=== PATIENT | male | born 1985 | race Caucasian/White ===

== ENCOUNTER → 2016-10-03 | Outpatient (CLI) | payer MEDICARE, MEDICAID ==
[~2016-10-03] MED LIST: ALEVE; AMOXICILLIN 8751 TAB PO; ATIVAN0.5 MG PO; B COMPLEX & B121 TAB PO; B6-FOLIC ACID1 CAP PO; BACTRIM 400 MG-1 TAB PO; BACTRIM DS 8001 TAB PO; BENADRYL ALLERG25 M2 PO; BENADRYL25 M1 PO; BENADRYL25 M2 PO; BENZTROPINE1 MG PO; BLEPH OP; BLEPH-10 5 ML5 ML OP; CARAFATE 1GM1 G PO; CEPHALEXIN500 M1 PO; CHLORHEXIDINE480 M1 PO; CIPRO 500MG TA500 MG PO; CLARITIN 1010 MG/TAB PO; CLINDAMYCIN300 MG PO; COGENTIN 1MG1 MG/TAB PO; COLACE 100100 MG/CAP PO; COMPAZINE 110 MG/TAB PO; COMPAZINE10 MG PO; DAZIDOX10 MG PO; DEXAMETHASONE4 MG PO; DIFLUCAN 100MG100 MG PO; DILAUDID 2MG TAB2 MG PO; DILAUDID 4MG TAB4 MG PO; DIPHEDRYL25 M1 PO; FENTANYL 100MCG TD; FLEXERIL 1010 MG/TAB PO; FLEXERIL10 MG PO; FLONASE NASAL S16 GM NS; IMITREX ST4 MG/0.5 M SC; K + POTASSIUM20 MEQ PO; KETOROLAC10 MG PO; KLONOPIN0.5 MG PO; KLONOPIN1 MG PO; LEVAQUIN 750MG750 MG PO; LORTAB 10/500 51 TAB; LORTAB 10/500 51 TAB PO; LORTAB 5/500 501 TAB PO; LOVENOX 8080 MG/0.8 SQ; LOVENOX80 MG/0.8 SC; MAGIC MOUTH; MARINOL5 MG PO; MECLIZINE25 MG PO; METHADONE5 MG PO; MILK OF MA1200 MG/5 PO; MS CONTIN 115 MG/TAB PO; MS CONTIN 330 MG/TAB PO; MS CONTIN 660 MG/TAB PO; NAPROSYN500 MG PO; NEULASTA 66 MG/0.6 M SC; NEXIUM40 MG PO; NO HOME MEDICATIONS; NORCO 325 MG-101 TAB PO; NORCO 325 MG-51 TAB PO; NYSTATIN OR100 MU/ML PO; OXYCODONE10 MG PO; OXYCODONE5 MG PO; OXYCONTIN 10MG10 MG PO; OXYCONTIN10 MG PO; OXYCONTIN20 MG PO; OYSCO 500500 M1 PO; PEPCID 20MG TAB20 MG PO; PERCOCET 325 MG1 TA2 PO; PERIDEX (CHLOR480 ML MM; PHENERGAN 25 TA25 MG PO; PHENERGAN12.5 MG/SU RC; PHENERGAN25 MG RC; PHENERGAN50 M1 PO; POLYETHYLENE GL1 PO6 PO; POTASSIUM CH2 MEQ/ML PO; POTASSIUM20 MEQ PO; PREDNISONE10 MG PO; PREDNISONE20 MG PO; PRIL40 PO; PRILOSEC 20MG20 MG PO; REGLAN 10MG10 MG/TAB PO; REGLAN 5MG T5 MG/TAB PO; ROXICODONE5 MG PO; SINGULAIR 110 MG/TAB PO; ULTRAM 50MG TAB50 MG PO; ULTRAM50 MG PO; VALIUM2 MG PO; VITAMIN D1000 IU PO; XANAX0.25 MG PO; XANAX0.5 MG PO; ZOFRAN ODT4 MG PO; ZOFRAN4 M1 PO; ZOFRAN8 MG PO; [UNRECOGNIZED DRUG - OTHER] PO; [UNRECOGNIZED DRUG - REMARK]
== END ==
LOC: COL.RAD 12:30
DX: M54.5 Low back pain (principal); M25.551 Pain in right hip

== ENCOUNTER 2016-10-11 13:00 | Outpatient (RCR) | payer MEDICARE, MEDICAID ==
[~2016-10-11 13:00] MED LIST changes: -CARAFATE 1GM1 G PO; -DIFLUCAN 100MG100 MG PO; -MS CONTIN 660 MG/TAB PO; -PRILOSEC 20MG20 MG PO
[2016-10-15] MEDS ORDERED: PHENERGAN 25 TA25 MG PO (16:10)
[2016-10-15] MEDS ORDERED: PRILOSEC 20MG20 MG PO (18:57)
[2016-10-18] MEDS ORDERED: REGLAN 10MG10 MG/TAB PO (15:45)
[2016-11-02] MEDS ORDERED: NYSTATIN OR100 MU/ML PO (16:38)
[2016-11-02] MEDS ORDERED: DIFLUCAN 100MG100 MG PO (16:38)
== END 2016-12-31 | disposition home or self-care (01) ==
LOC: WSPT
DX: C85.98 Non-Hodgkin lymphoma, unspecified, lymph nodes of multiple sites (principal); Z98.890 Other specified postprocedural states
CPT/HCPCS: G8978-GP; G8979-GP

== ENCOUNTER 2016-10-15 14:41 | Emergency (ER) | payer MEDICARE, MEDICAID ==
[~2016-10-15] VITALS: Ht 182.9 cm; Wt 77.3 kg
[2016-10-15 14:42] VITALS: BP 143/86; TEMP 98
[2016-10-15 15:40] LABS: BASO % 0.4 % (0.0-2.0); EOS # 0.1 (0.0-0.7); EOS % 1.9 % (0-4.0); GRAN # 2.7 (1.4-6.5); GRAN % 54.8 % (42.2-75.2); HEMATOCRIT 44.7 % (42.0-52.0); HEMOGLOBIN 15.9 g/dl (13.5-18.0); LYMPH # 1.8 (1.2-3.4); LYMPH % 37.4 % (20.0-51.0); MEAN CELL VOLUME 87 fl (80.0-100.0); MEAN CORPUSCULAR HEMOGLOBIN 31 pg (27.0-31.0); MEAN CORPUSCULAR HGB CONC 36 g/dl (33.0-37.0); MEAN PLATELET VOLUME 9.5 fl (7.4-10.4); MONO # 0.3 (0.1-0.6); MONO % 5.3 % (1.7-9.3); PLATELET COUNT 227 K/mm3 (130-400); RED BLOOD COUNT 5.16 M/mm3 (4.20-5.60); REDCELL DISTRIBUTION WIDTH-CV 12.8 % (11.5-14.5); WHITE BLOOD COUNT 4.9 K/mm3 (4.8-10.8)
[2016-10-15 15:53] LABS: ADJUSTED CALCIUM 9.1 mg/dL (8.4-10.2); ALANINE AMINOTRANSFERASE 33 U/L (21-72); ALBUMIN 4.8 gm/dL (3.5-5.0); ALKALINE PHOSPHATASE 109 U/L (50-136); ANION GAP 14 mmol/L (7-16); BILIRUBIN,TOTAL 1.6 mg/dL (0.0-1.0); BLOOD UREA NITROGEN 4 mg/dL (9-20); CALCIUM 9.7 mg/dL (8.4-10.2); CARBON DIOXIDE 26 mmol/L (22-30); CHLORIDE 97 mmol/L (98-107); GLUCOSE 94 mg/dL (74-106); LIPASE 27 U/L (23-300); POTASSIUM 3.2 mmol/L (3.4-5.0); SODIUM 136 mmol/L (137-145); TOTAL PROTEIN 7.1 gm/dL (6.4-8.2)
[2016-10-15 15:54] LABS: C-REACTIVE PROTEIN < 0.5 mg/dL (0.0-0.9)
[2016-10-15 16:03] LABS: TROPONIN-I < 0.012 ng/mL (0.000-0.034)
[2016-10-15] MEDS ORDERED: PHENERGAN 25 TA25 MG PO (16:10)
[2016-10-15 16:45] LABS: PH 8 (5-8); SQUAMOUS EPITHELIAL None Seen /hpf; URINE APPEARANCE Clear; URINE BACTERIA None Seen /hpf; URINE BILIRUBIN Negative (NEGATIVE); URINE BLOOD Negative (NEGATIVE); URINE COLOR Yellow; URINE GLUCOSE Negative (NEGATIVE); URINE KETONE Negative (NEGATIVE); URINE RBC 0-2 /hpf; URINE UROBILINOGEN Negative (NEGATIVE); URINE WBC 0-2 /hpf
[2016-10-15] MEDS ORDERED: PRILOSEC 20MG20 MG PO (18:57)
[2016-10-15 19:19] VITALS: PULSE 85
== END 2016-10-15 19:20 | disposition home or self-care (01) ==
LOC: COL.ER 14:41
PROVIDERS: Emergency Medicine
DX: R10.13 Epigastric pain (principal); R11.2 Nausea with vomiting, unspecified; R63.0 Anorexia; R19.7 Diarrhea, unspecified; Z79.891 Long term (current) use of opiate analgesic
CPT/HCPCS: C9113; J1170; J1200; J1885; J2550; J7030

== ENCOUNTER 2016-10-16 15:57 | Observation (INO) | payer MEDICARE, MEDICAID ==
[~2016-10-16] VITALS: Ht 182.9 cm; Wt 77.6 kg
[~2016-10-16 15:57] MED LIST changes: +PRILOSEC 20MG20 MG PO
[2016-10-16 16:27] VITALS: BP 135/87; PULSE 75; TEMP 98
[2016-10-16 18:17] LABS: BASO % 0.4 % (0.0-2.0); EOS # 0.1 (0.0-0.7); EOS % 1.2 % (0-4.0); GRAN # 3.8 (1.4-6.5); GRAN % 55.4 % (42.2-75.2); HEMATOCRIT 43.7 % (42.0-52.0); HEMOGLOBIN 15.4 g/dl (13.5-18.0); LYMPH # 2.6 (1.2-3.4); LYMPH % 38.2 % (20.0-51.0); MEAN CELL VOLUME 88 fl (80.0-100.0); MEAN CORPUSCULAR HEMOGLOBIN 31 pg (27.0-31.0); MEAN CORPUSCULAR HGB CONC 35 g/dl (33.0-37.0); MEAN PLATELET VOLUME 9.6 fl (7.4-10.4); MONO # 0.3 (0.1-0.6); MONO % 4.7 % (1.7-9.3); PLATELET COUNT 238 K/mm3 (130-400); RED BLOOD COUNT 4.99 M/mm3 (4.20-5.60); REDCELL DISTRIBUTION WIDTH-CV 12.8 % (11.5-14.5); WHITE BLOOD COUNT 6.9 K/mm3 (4.8-10.8)
[2016-10-16 18:30] LABS: ADJUSTED CALCIUM 9.1 mg/dL (8.4-10.2); ALBUMIN 4.5 gm/dL (3.5-5.0); BILIRUBIN,TOTAL 1.1 mg/dL (0.0-1.0); CALCIUM 9.5 mg/dL (8.4-10.2); CREATININE, serum 0.9 mg/dL (0.66-1.25); MAGNESIUM 2.1 mg/dL (1.6-2.3); TOTAL PROTEIN 6.6 gm/dL (6.4-8.2)
[2016-10-16 18:36] LABS: POTASSIUM 2.8 mmol/L (3.4-5.0)
[2016-10-16 23:20] VITALS: BP 136/79; PULSE 62; TEMP 97.9
[2016-10-17] VITALS (9 sets, daily range): BP systolic 104–131; BP diastolic 61–91; PULSE 57–69; TEMP 97.7–98.2
[2016-10-17 08:39] LABS: CALCIUM 8.8 mg/dL (8.4-10.2); CREATININE, serum 0.81 mg/dL (0.66-1.25); POTASSIUM 3.4 mmol/L (3.4-5.0)
[2016-10-18 04:37] VITALS: BP 123/78; PULSE 88; TEMP 98.4
[2016-10-18 10:04] VITALS: BP 121/74; PULSE 70; TEMP 97.9
[2016-10-18 13:50] VITALS: BP 136/71; PULSE 68; TEMP 97.8
[2016-10-18] MEDS ORDERED: REGLAN 10MG10 MG/TAB PO (15:45)
== END 2016-10-18 17:40 | disposition home or self-care (01) ==
LOC: SURG 15:57
PROVIDERS: Internal Medicine
DX: K29.70 Gastritis, unspecified, without bleeding (principal); R11.2 Nausea with vomiting, unspecified; K30 Functional dyspepsia; R10.13 Epigastric pain; E87.6 Hypokalemia; E86.0 Dehydration; G89.29 Other chronic pain; F41.8 Other specified anxiety disorders
CPT/HCPCS: 99232-AI; A9541; C9113; G0378; G0379; J1170; J1650; J2060; J2550; J2704; J3010; Q9967

== ENCOUNTER 2016-11-02 15:55 | Emergency (ER) | payer MEDICARE, MEDICAID ==
[~2016-11-02] VITALS: Ht 182.9 cm; Wt 75.0 kg
[2016-11-02 15:57] VITALS: TEMP 97.8
[2016-11-02] MEDS ORDERED: NYSTATIN OR100 MU/ML PO (16:38)
[2016-11-02] MEDS ORDERED: DIFLUCAN 100MG100 MG PO (16:38)
[2016-11-02 16:57] LABS: BASO % 0.6 % (0.0-2.0); EOS # 0.1 (0.0-0.7); EOS % 1.4 % (0-4.0); GRAN # 2.5 (1.4-6.5); GRAN % 50.5 % (42.2-75.2); HEMATOCRIT 40.9 % (42.0-52.0); HEMOGLOBIN 14.7 g/dl (13.5-18.0); LYMPH % 41.9 % (20.0-51.0); MEAN CELL VOLUME 86 fl (80.0-100.0); MEAN CORPUSCULAR HEMOGLOBIN 31 pg (27.0-31.0); MEAN CORPUSCULAR HGB CONC 36 g/dl (33.0-37.0); MEAN PLATELET VOLUME 10.3 fl (7.4-10.4); MONO # 0.3 (0.1-0.6); MONO % 5.4 % (1.7-9.3); PLATELET COUNT 204 K/mm3 (130-400); RED BLOOD COUNT 4.75 M/mm3 (4.20-5.60); REDCELL DISTRIBUTION WIDTH-CV 12.6 % (11.5-14.5); WHITE BLOOD COUNT 4.9 K/mm3 (4.8-10.8)
[2016-11-02 17:04] LABS: INR 1.2 (0.8-3.0); PROTHROMBIN TIME 12.9 SECONDS (9.7-12.8)
[2016-11-02 17:07] LABS: PARTIAL THROMBOPLASTIN TIME 33.2 SECONDS (26.0-37.0)
[2016-11-02 17:18] LABS: ADJUSTED CALCIUM 9.4 mg/dL (8.4-10.2); ALANINE AMINOTRANSFERASE 39 U/L (21-72); ALBUMIN 4.4 gm/dL (3.5-5.0); ALKALINE PHOSPHATASE 88 U/L (50-136); ANION GAP 14 mmol/L (7-16); BILIRUBIN,TOTAL 0.9 mg/dL (0.0-1.0); BLOOD UREA NITROGEN 6 mg/dL (9-20); CALCIUM 9.7 mg/dL (8.4-10.2); CARBON DIOXIDE 28 mmol/L (22-30); CHLORIDE 96 mmol/L (98-107); CREATININE, serum 1.03 mg/dL (0.66-1.25); GLUCOSE 95 mg/dL (74-106); POTASSIUM 3.1 mmol/L (3.4-5.0); SODIUM 137 mmol/L (137-145); TOTAL PROTEIN 6.5 gm/dL (6.4-8.2)
[2016-11-02 17:20] LABS: C-REACTIVE PROTEIN < 0.5 mg/dL (0.0-0.9)
[2016-11-02 17:35] LABS: TROPONIN-I < 0.012 ng/mL (0.000-0.034)
[2016-11-02 18:35] VITALS: BP 113/74; PULSE 76
== END 2016-11-02 18:37 | disposition home or self-care (01) ==
LOC: COL.ER 15:55
PROVIDERS: Emergency Medicine
DX: M94.0 Chondrocostal junction syndrome [Tietze] (principal); G89.29 Other chronic pain; Z85.72 Personal history of non-Hodgkin lymphomas; Z86.711 Personal history of pulmonary embolism; Z85.830 Personal history of malignant neoplasm of bone; Z96.651 Presence of right artificial knee joint
CPT/HCPCS: J1885; J2270; J2930

== ENCOUNTER 2017-01-02 04:55 | Emergency (ER) | payer MEDICARE, MEDICAID ==
[~2017-01-02] VITALS: Ht 182 cm; Wt 77.3 kg
[~2017-01-02 04:55] MED LIST changes: +DIFLUCAN 100MG100 MG PO
[2017-01-02 04:57] VITALS: TEMP 98
[2017-01-02] MEDS ORDERED: MS CONTIN 660 MG/TAB PO (05:17)
[2017-01-02 05:33] LABS: BASO % 0.4 % (0.0-2.0); EOS % 0.1 % (0-4.0); GRAN % 77.5 % (42.2-75.2); HEMATOCRIT 47.5 % (42.0-52.0); HEMOGLOBIN 16.5 g/dl (13.5-18.0); LYMPH # 1.4 (1.2-3.4); LYMPH % 18.1 % (20.0-51.0); MEAN CELL VOLUME 89 fl (80.0-100.0); MEAN CORPUSCULAR HEMOGLOBIN 31 pg (27.0-31.0); MEAN CORPUSCULAR HGB CONC 35 g/dl (33.0-37.0); MEAN PLATELET VOLUME 9.1 fl (7.4-10.4); MONO # 0.3 (0.1-0.6); MONO % 3.6 % (1.7-9.3); PLATELET COUNT 244 K/mm3 (130-400); RED BLOOD COUNT 5.33 M/mm3 (4.20-5.60); REDCELL DISTRIBUTION WIDTH-CV 13.2 % (11.5-14.5); WHITE BLOOD COUNT 7.7 K/mm3 (4.8-10.8)
[2017-01-02 05:41] LABS: ADJUSTED CALCIUM 9.1 mg/dL (8.4-10.2); BILIRUBIN,TOTAL 3.1 mg/dL (0.0-1.0); CALCIUM 9.9 mg/dL (8.4-10.2); CREATININE, serum 0.86 mg/dL (0.66-1.25); MAGNESIUM 2.1 mg/dL (1.6-2.3); PHOSPHOROUS 2.9 mg/dL (2.5-4.5); POTASSIUM 3.8 mmol/L (3.4-5.0); TOTAL PROTEIN 7.9 gm/dL (6.4-8.2)
[2017-01-02] MEDS ORDERED: CARAFATE 1GM1 G PO (06:30)
[2017-01-02 06:48] LABS: PH 5 (5-8); SQUAMOUS EPITHELIAL None Seen /hpf; URINE APPEARANCE Clear; URINE BACTERIA None Seen /hpf; URINE BILIRUBIN Negative (NEGATIVE); URINE BLOOD 2+ (NEGATIVE); URINE COLOR Yellow; URINE GLUCOSE Negative (NEGATIVE); URINE KETONE 2+ (NEGATIVE); URINE RBC 0-2 /hpf; URINE UROBILINOGEN Negative (NEGATIVE); URINE WBC 0-2 /hpf
[2017-01-02] MEDS ORDERED: PHENERGAN25 MG RC (06:58)
[2017-01-02 07:16] VITALS: BP 104/63; PULSE 90
== END 2017-01-02 07:21 | disposition home or self-care (01) ==
LOC: COL.ER 04:55
PROVIDERS: Emergency Medicine
DX: R11.10 Vomiting, unspecified (principal); T40.2X6A Underdosing of other opioids, initial encounter; Z91.138 Patient's unintentional underdosing of medication regimen for other reason; Z85.72 Personal history of non-Hodgkin lymphomas; G89.29 Other chronic pain; Z79.891 Long term (current) use of opiate analgesic; K30 Functional dyspepsia; F12.90 Cannabis use, unspecified, uncomplicated
CPT/HCPCS: J1170; J1200; J2060; J2550; J2765; J7030

== ENCOUNTER → 2017-04-06 | Outpatient (CLI) | payer MEDICARE, MEDICAID ==
[~2017-04-06] MED LIST changes: +CARAFATE 1GM1 G PO; +MS CONTIN 660 MG/TAB PO
== END ==
LOC: COL.RAD 04-04 08:30
DX: C85.90 Non-Hodgkin lymphoma, unspecified, unspecified site (principal); E04.1 Nontoxic single thyroid nodule; R63.4 Abnormal weight loss; R61 Generalized hyperhidrosis
CPT/HCPCS: Q9967

== ENCOUNTER 2017-04-08 22:24 | Emergency (ER) | payer MEDICARE, MEDICAID ==
[~2017-04-08] VITALS: Ht 182.9 cm; Wt 77.3 kg
[2017-04-08 22:31] VITALS: BP 125/73; TEMP 99
[2017-04-09 00:15] LABS: PH 5 (5-8); SQUAMOUS EPITHELIAL None Seen /hpf; URINE APPEARANCE Clear; URINE BACTERIA None Seen /hpf; URINE BILIRUBIN Negative (NEGATIVE); URINE BLOOD 2+ (NEGATIVE); URINE COLOR Yellow; URINE GLUCOSE Negative (NEGATIVE); URINE KETONE Trace (NEGATIVE); URINE RBC 0-2 /hpf; URINE UROBILINOGEN Negative (NEGATIVE); URINE WBC 0-2 /hpf
[2017-04-09 01:55] VITALS: PULSE 97
== END 2017-04-09 01:55 | disposition home or self-care (01) ==
LOC: COL.ER 22:24
PROVIDERS: Physician Assistant
DX: N50.812 Left testicular pain (principal); Z85.72 Personal history of non-Hodgkin lymphomas
CPT/HCPCS: J1170; J1200; J2060

== ENCOUNTER → 2017-04-13 | Outpatient (CLI) | payer MEDICARE, MEDICAID | LOC: COL.RAD 09:30 | DX: C83.39 Diffuse large B-cell lymphoma, extranodal and solid organ sites (principal); E04.2 Nontoxic multinodular goiter ==

== ENCOUNTER 2017-06-26 05:35 | Emergency (ER) | payer MEDICARE ==
[~2017-06-26] VITALS: Ht 182.9 cm; Wt 79.5 kg
[2017-06-26 05:39] VITALS: TEMP 97.9
[2017-06-26 07:05] LABS: BASO % 0.2 % (0.0-2.0); EOS % 0.3 % (0-4.0); GRAN # 4.4 (1.4-6.5); GRAN % 76.2 % (42.2-75.2); HEMATOCRIT 46.9 % (42.0-52.0); HEMOGLOBIN 16.4 g/dl (13.5-18.0); LYMPH # 1.1 (1.2-3.4); LYMPH % 19.6 % (20.0-51.0); MEAN CELL VOLUME 89 fl (80.0-100.0); MEAN CORPUSCULAR HEMOGLOBIN 31 pg (27.0-31.0); MEAN CORPUSCULAR HGB CONC 35 g/dl (33.0-37.0); MEAN PLATELET VOLUME 9.6 fl (7.4-10.4); MONO # 0.2 (0.1-0.6); MONO % 3.4 % (1.7-9.3); PLATELET COUNT 213 K/mm3 (130-400); RED BLOOD COUNT 5.29 M/mm3 (4.20-5.60); WHITE BLOOD COUNT 5.8 K/mm3 (4.8-10.8)
[2017-06-26 07:11] LABS: ADJUSTED CALCIUM 9.2 mg/dL (8.4-10.2); CREATININE, serum 0.78 mg/dL (0.66-1.25); POTASSIUM 3.7 mmol/L (3.4-5.0); TOTAL PROTEIN 7.3 gm/dL (6.4-8.2)
[2017-06-26] MEDS ORDERED: PHENERGAN 25 TA25 MG PO (08:01)
[2017-06-26 08:15] VITALS: BP 120/76; PULSE 76
== END 2017-06-26 08:23 | disposition home or self-care (01) ==
LOC: COL.ER 05:35
PROVIDERS: Emergency Medicine
DX: G89.29 Other chronic pain (principal); R10.84 Generalized abdominal pain; F17.200 Nicotine dependence, unspecified, uncomplicated; Z85.72 Personal history of non-Hodgkin lymphomas
CPT/HCPCS: J1170; J2550; J7120

== ENCOUNTER 2017-08-15 18:54 | Emergency (ER) | payer MEDICARE ==
[~2017-08-15] VITALS: Ht 182.9 cm; Wt 79.5 kg
[2017-08-15 18:57] VITALS: BP 158/90; TEMP 97.6
[2017-08-15 19:36] LABS: BASO % 0.3 % (0.0-2.0); EOS # 0.1 (0.0-0.7); EOS % 1.2 % (0-4.0); GRAN # 4.3 (1.4-6.5); GRAN % 64.9 % (42.2-75.2); HEMATOCRIT 48.5 % (42.0-52.0); LYMPH # 1.9 (1.2-3.4); LYMPH % 28.7 % (20.0-51.0); MEAN CELL VOLUME 88 fl (80.0-100.0); MEAN CORPUSCULAR HEMOGLOBIN 31 pg (27.0-31.0); MEAN CORPUSCULAR HGB CONC 35 g/dl (33.0-37.0); MEAN PLATELET VOLUME 9.4 fl (7.4-10.4); MONO # 0.3 (0.1-0.6); MONO % 4.7 % (1.7-9.3); PLATELET COUNT 218 K/mm3 (130-400); RED BLOOD COUNT 5.53 M/mm3 (4.20-5.60); REDCELL DISTRIBUTION WIDTH-CV 12.3 % (11.5-14.5)
[2017-08-15 19:46] LABS: ALBUMIN 5.2 gm/dL (3.5-5.0); BILIRUBIN,TOTAL 1.8 mg/dL (0.0-1.0); CALCIUM 9.8 mg/dL (8.4-10.2); CREATININE, serum 0.81 mg/dL (0.66-1.25); TOTAL PROTEIN 7.6 gm/dL (6.4-8.2)
[2017-08-15 19:57] LABS: C-REACTIVE PROTEIN 0.5 mg/dL (0.0-0.9)
[2017-08-15 21:33] LABS: COLLECTION METHOD CLEAN CATCH
[2017-08-15 22:39] LABS: MUCOUS Present /lpf; PH 6 (5-8); SQUAMOUS EPITHELIAL 0-2 /hpf; URINE APPEARANCE Clear; URINE BACTERIA Occasional /hpf; URINE BILIRUBIN Negative (NEGATIVE); URINE BLOOD 1+ (NEGATIVE); URINE COLOR Yellow; URINE GLUCOSE Negative (NEGATIVE); URINE KETONE 1+ (NEGATIVE); URINE LEUKOCYTE ESTERASE Negative (NEGATIVE); URINE NITRATE Negative (NEGATIVE); URINE PROTEIN(semi-quant) Negative (NEGATIVE)
[2017-08-15 23:20] VITALS: PULSE 98
== END 2017-08-15 23:20 | disposition home or self-care (01) ==
LOC: COL.ER 18:54
PROVIDERS: Emergency Medicine
DX: M54.2 Cervicalgia (principal); R51 Headache; R11.2 Nausea with vomiting, unspecified; G89.29 Other chronic pain; R10.9 Unspecified abdominal pain; Z85.72 Personal history of non-Hodgkin lymphomas
CPT/HCPCS: J1200; J1885; J2270; J2360; J2550; J7030

== ENCOUNTER 2017-08-16 11:24 | Outpatient (CLI) | payer MEDICARE ==
[~2017-08-16] VITALS: Ht 182.9 cm; Wt 82.8 kg
[2017-08-16 11:48] VITALS: BP 122/81; PULSE 60; TEMP 99.6
[2017-08-16 14:45] LABS: COLLECTION METHOD CLEAN CATCH
[2017-08-16 15:28] LABS: MUCOUS Present /lpf; PH 5 (5-8); SQUAMOUS EPITHELIAL None Seen /hpf; URINE APPEARANCE Clear; URINE BACTERIA None Seen /hpf; URINE BILIRUBIN Negative (NEGATIVE); URINE BLOOD 1+ (NEGATIVE); URINE COLOR Yellow; URINE GLUCOSE Negative (NEGATIVE); URINE KETONE Negative (NEGATIVE); URINE LEUKOCYTE ESTERASE Negative (NEGATIVE); URINE NITRATE Negative (NEGATIVE); URINE PROTEIN(semi-quant) Negative (NEGATIVE); URINE RBC 0-2 /hpf; URINE WBC 0-2 /hpf
== END 2017-08-16 16:32 | disposition home or self-care (01) ==
LOC: EUO 11:24
PROVIDERS: Family Medicine
DX: E86.0 Dehydration (principal); E87.6 Hypokalemia
CPT/HCPCS: J3480

== ENCOUNTER → 2017-08-30 | Outpatient (CLI) | payer MEDICARE | LOC: COL.RAD 08-27 09:45 | DX: C83.39 Diffuse large B-cell lymphoma, extranodal and solid organ sites (principal); E04.2 Nontoxic multinodular goiter ==

== ENCOUNTER → 2017-12-18 | Outpatient (CLI) | payer MEDICARE, MEDICAID | LOC: COL.RAD 10:56 | DX: M25.562 Pain in left knee (principal) ==

== ENCOUNTER 2018-01-30 15:50 | Emergency (ER) | payer MEDICARE, MEDICAID ==
[~2018-01-30] VITALS: Ht 182.9 cm; Wt 83.2 kg
[2018-01-30 15:55] VITALS: TEMP 98.7
[2018-01-30 16:43] LABS: BASO % 0.2 % (0.0-2.0); GRAN # 13.8 (1.4-6.5); GRAN % 90.7 % (42.2-75.2); HEMATOCRIT 46.7 % (42.0-52.0); HEMOGLOBIN 16.8 g/dl (13.5-18.0); LYMPH # 0.9 (1.2-3.4); LYMPH % 5.6 % (20.0-51.0); MEAN CELL VOLUME 86 fl (80.0-100.0); MEAN CORPUSCULAR HEMOGLOBIN 31 pg (27.0-31.0); MEAN CORPUSCULAR HGB CONC 36 g/dl (33.0-37.0); MEAN PLATELET VOLUME 9.4 fl (7.4-10.4); MONO # 0.5 (0.1-0.6); MONO % 3.2 % (1.7-9.3); PLATELET COUNT 247 K/mm3 (130-400); RED BLOOD COUNT 5.44 M/mm3 (4.20-5.60); REDCELL DISTRIBUTION WIDTH-CV 12.3 % (11.5-14.5)
[2018-01-30 16:52] LABS: ALBUMIN 4.8 gm/dL (3.5-5.0); BILIRUBIN,TOTAL 1.5 mg/dL (0.0-1.0); CALCIUM 9.6 mg/dL (8.4-10.2); CREATININE, serum 0.83 mg/dL (0.66-1.25); POTASSIUM 3.9 mmol/L (3.4-5.0); TOTAL PROTEIN 7.5 gm/dL (6.4-8.2)
[2018-01-30 17:35] LABS: COLLECTION METHOD CLEAN CATCH
[2018-01-30 17:41] LABS: MUCOUS Present /lpf; PH 7 (5-8); SQUAMOUS EPITHELIAL None Seen /hpf; URINE APPEARANCE Clear; URINE BACTERIA None Seen /hpf; URINE BILIRUBIN Negative (NEGATIVE); URINE BLOOD 1+ (NEGATIVE); URINE COLOR Yellow; URINE GLUCOSE Negative (NEGATIVE); URINE KETONE 1+ (NEGATIVE); URINE LEUKOCYTE ESTERASE Negative (NEGATIVE); URINE NITRATE Negative (NEGATIVE); URINE PROTEIN(semi-quant) 1+ (NEGATIVE); URINE UROBILINOGEN Negative (NEGATIVE)
[2018-01-30] MEDS ORDERED: PHENERGAN 25 TA25 MG PO (17:50)
[2018-01-30 18:02] VITALS: BP 126/82; PULSE 92
== END 2018-01-30 18:05 | disposition home or self-care (01) ==
LOC: COL.ER 15:50
PROVIDERS: Nurse Practitioner; Physician Assistant
DX: G89.29 Other chronic pain (principal); R11.10 Vomiting, unspecified; M54.5 Low back pain; Z90.49 Acquired absence of other specified parts of digestive tract; Z85.72 Personal history of non-Hodgkin lymphomas
CPT/HCPCS: J0780; J1200; J1885; J2270; J7030

== ENCOUNTER 2018-04-20 05:21 | Emergency (ER) | payer MEDICARE, MEDICAID ==
[~2018-04-20] VITALS: Ht 182.9 cm; Wt 77.3 kg
[2018-04-20 05:29] VITALS: BP 124/88; TEMP 98.3
[2018-04-20] MEDS ORDERED: MS CONTIN 660 MG/TAB PO (06:27)
[2018-04-20] MEDS ORDERED: PHENERGAN 25 TA25 MG PO ×2 (06:28→07:26)
[2018-04-20 06:30] LABS: BASO % 0.2 % (0.0-2.0); EOS % 0.1 % (0-4.0); GRAN # 9.6 (1.4-6.5); HEMATOCRIT 49.7 % (42.0-52.0); HEMOGLOBIN 17.6 g/dl (13.5-18.0); LYMPH # 1.1 (1.2-3.4); LYMPH % 9.4 % (20.0-51.0); MEAN CELL VOLUME 86 fl (80.0-100.0); MEAN CORPUSCULAR HEMOGLOBIN 30 pg (27.0-31.0); MEAN CORPUSCULAR HGB CONC 35 g/dl (33.0-37.0); MEAN PLATELET VOLUME 9.1 fl (7.4-10.4); MONO # 0.8 (0.1-0.6); PLATELET COUNT 229 K/mm3 (130-400); RED BLOOD COUNT 5.78 M/mm3 (4.20-5.60); REDCELL DISTRIBUTION WIDTH-CV 13.2 % (11.5-14.5)
[2018-04-20 06:43] LABS: ALBUMIN 4.5 gm/dL (3.5-5.0); BILIRUBIN,TOTAL 2.8 mg/dL (0.0-1.0); C-REACTIVE PROTEIN 5.6 mg/dL (0.0-0.9); CALCIUM 9.3 mg/dL (8.4-10.2); CREATININE, serum 0.72 mg/dL (0.66-1.25); POTASSIUM 3.8 mmol/L (3.4-5.0); TOTAL PROTEIN 7.4 gm/dL (6.4-8.2)
[2018-04-20] MEDS ORDERED: CLEOCIN HCL300 MG PO (07:25)
[2018-04-20 09:35] VITALS: PULSE 85
== END 2018-04-20 09:35 | disposition home or self-care (01) ==
LOC: COL.ER 05:21
PROVIDERS: Emergency Medicine
DX: R68.84 Jaw pain (principal)
CPT/HCPCS: J2270; J2765; J7030; J7120; Q9967

== ENCOUNTER → 2018-04-23 | Outpatient (CLI) | payer MEDICARE, MEDICAID ==
[~2018-04-23] VITALS: Ht 182.9 cm; Wt 78.5 kg
[~2018-04-23] MED LIST changes: +CLEOCIN HCL300 MG PO
[2018-04-23 15:50] LABS: HEMATOCRIT 44.8 % (42.0-52.0); MEAN CELL VOLUME 86 fl (80.0-100.0); MEAN CORPUSCULAR HEMOGLOBIN 31 pg (27.0-31.0); MEAN CORPUSCULAR HGB CONC 36 g/dl (33.0-37.0); MEAN PLATELET VOLUME 9.5 fl (7.4-10.4); PLATELET COUNT 267 K/mm3 (130-400); RED BLOOD COUNT 5.23 M/mm3 (4.20-5.60); REDCELL DISTRIBUTION WIDTH-CV 13.2 % (11.5-14.5)
[2018-04-23 17:24] VITALS: BP 131/87; PULSE 96; TEMP 101.5
[2018-04-23 18:12] VITALS: BP 136/79; PULSE 97; TEMP 100.6
== END ==
LOC: EUO 14:00
PROVIDERS: Family Medicine
DX: E86.0 Dehydration (principal); T81.40XA Infection following a procedure, unspecified, initial encounter
CPT/HCPCS: J1200; J2270; J7030

== ENCOUNTER 2018-04-25 13:22 | Emergency (ER) | payer MEDICARE, MEDICAID ==
[~2018-04-25] VITALS: Ht 182.9 cm; Wt 78.6 kg
[2018-04-25 13:26] VITALS: BP 129/84; TEMP 98.4
[2018-04-25 14:52] LABS: BASO % 0.5 % (0.0-2.0); EOS # 0.1 (0.0-0.7); EOS % 1.8 % (0-4.0); GRAN # 3.9 (1.4-6.5); GRAN % 64.2 % (42.2-75.2); HEMOGLOBIN 15.1 g/dl (13.5-18.0); LYMPH # 1.6 (1.2-3.4); LYMPH % 26.5 % (20.0-51.0); MEAN CELL VOLUME 87 fl (80.0-100.0); MEAN CORPUSCULAR HEMOGLOBIN 31 pg (27.0-31.0); MEAN CORPUSCULAR HGB CONC 35 g/dl (33.0-37.0); MEAN PLATELET VOLUME 9.2 fl (7.4-10.4); MONO # 0.4 (0.1-0.6); MONO % 6.8 % (1.7-9.3); PLATELET COUNT 253 K/mm3 (130-400); RED BLOOD COUNT 4.94 M/mm3 (4.20-5.60); REDCELL DISTRIBUTION WIDTH-CV 13.2 % (11.5-14.5)
[2018-04-25 15:06] LABS: BILIRUBIN,TOTAL 1.2 mg/dL (0.0-1.0); C-REACTIVE PROTEIN 4.1 mg/dL (0.0-0.9); CREATININE, serum 0.65 mg/dL (0.66-1.25); POTASSIUM 3.2 mmol/L (3.4-5.0); TOTAL PROTEIN 6.8 gm/dL (6.4-8.2)
[2018-04-25 18:12] VITALS: PULSE 88
== END 2018-04-25 18:12 | disposition home or self-care (01) ==
LOC: COL.ER 13:22
PROVIDERS: Emergency Medicine
DX: G89.18 Other acute postprocedural pain (principal); K02.9 Dental caries, unspecified
CPT/HCPCS: J0696; J1100; J1170; J2550; J7030; Q9967

== ENCOUNTER 2018-10-09 02:05 | Emergency (ER) | payer MEDICAID ==
[~2018-10-09] VITALS: Ht 182.9 cm; Wt 81.8 kg
[2018-10-09 02:18] VITALS: TEMP 97
[2018-10-09 03:09] LABS: BASO % 0.1 % (0.0-2.0); EOS % 0.1 % (0-4.0); GRAN # 5.8 (1.4-6.5); GRAN % 80.1 % (42.2-75.2); HEMATOCRIT 48.5 % (42.0-52.0); LYMPH # 1.2 (1.2-3.4); LYMPH % 16.3 % (20.0-51.0); MEAN CELL VOLUME 89 fl (80.0-100.0); MEAN CORPUSCULAR HEMOGLOBIN 31 pg (27.0-31.0); MEAN CORPUSCULAR HGB CONC 35 g/dl (33.0-37.0); MEAN PLATELET VOLUME 9.5 fl (7.4-10.4); MONO # 0.2 (0.1-0.6); MONO % 3.3 % (1.7-9.3); PLATELET COUNT 235 K/mm3 (130-400); RED BLOOD COUNT 5.44 M/mm3 (4.20-5.60); REDCELL DISTRIBUTION WIDTH-CV 13.2 % (11.5-14.5)
[2018-10-09 03:19] LABS: ALBUMIN 4.6 gm/dL (3.5-5.0); BILIRUBIN,TOTAL 1.3 mg/dL (0.0-1.0); CREATININE, serum 0.82 (0.66-1.25); POTASSIUM 3.8 mmol/L (3.4-5.0); TOTAL PROTEIN 7.4 gm/dL (6.4-8.2)
[2018-10-09 05:39] LABS: COLLECTION METHOD CLEAN CATCH
[2018-10-09 05:45] LABS: PH 8 (5-8); SQUAMOUS EPITHELIAL None Seen /hpf; URINE APPEARANCE Clear; URINE BACTERIA None Seen /hpf; URINE BILIRUBIN Negative (NEGATIVE); URINE BLOOD 1+ (NEGATIVE); URINE COLOR Yellow; URINE GLUCOSE Negative (NEGATIVE); URINE KETONE 1+ (NEGATIVE); URINE LEUKOCYTE ESTERASE Negative (NEGATIVE); URINE NITRATE Negative (NEGATIVE); URINE PROTEIN(semi-quant) Negative (NEGATIVE); URINE RBC 0-2 /hpf; URINE UROBILINOGEN Negative (NEGATIVE); URINE WBC 0-2 /hpf
[2018-10-09] MEDS ORDERED: PHENERGAN25 MG RC (06:37)
[2018-10-09] MEDS ORDERED: REGLAN 10MG10 MG/TAB PO (06:37)
[2018-10-09] MEDS ORDERED: PHENERGAN 25 TA25 MG PO (06:37)
[2018-10-09 07:11] VITALS: BP 118/66; PULSE 77
== END 2018-10-09 07:12 | disposition home or self-care (01) ==
LOC: COL.ER 02:05
PROVIDERS: Emergency Medicine
DX: G89.29 Other chronic pain (principal); M54.9 Dorsalgia, unspecified; R11.2 Nausea with vomiting, unspecified; F17.210 Nicotine dependence, cigarettes, uncomplicated; F12.90 Cannabis use, unspecified, uncomplicated; Z90.49 Acquired absence of other specified parts of digestive tract; Z85.72 Personal history of non-Hodgkin lymphomas
CPT/HCPCS: J1200; J1630; J1885; J2270; J2550; J2765; J7030; Q9967

== ENCOUNTER 2018-12-09 11:35 | Emergency (ER) | payer MEDICARE ==
[~2018-12-09] VITALS: Ht 182.9 cm; Wt 77.3 kg
[2018-12-09 11:43] VITALS: BP 129/89; TEMP 97.4
[2018-12-09 12:20] LABS: BASO % 0.5 % (0.0-2.0); EOS # 0.1 (0.0-0.7); EOS % 1.2 % (0-4.0); GRAN % 66.3 % (42.2-75.2); HEMATOCRIT 50.9 % (42.0-52.0); HEMOGLOBIN 18.2 g/dl (13.5-18.0); LYMPH # 1.6 (1.2-3.4); LYMPH % 26.1 % (20.0-51.0); MEAN CELL VOLUME 88 fl (80.0-100.0); MEAN CORPUSCULAR HEMOGLOBIN 31 pg (27.0-31.0); MEAN CORPUSCULAR HGB CONC 36 g/dl (33.0-37.0); MEAN PLATELET VOLUME 8.9 fl (7.4-10.4); MONO # 0.3 (0.1-0.6); MONO % 5.7 % (1.7-9.3); PLATELET COUNT 273 K/mm3 (130-400); RED BLOOD COUNT 5.78 M/mm3 (4.20-5.60); REDCELL DISTRIBUTION WIDTH-CV 12.9 % (11.5-14.5)
[2018-12-09 12:30] LABS: ALBUMIN 4.9 gm/dL (3.5-5.0); BILIRUBIN,TOTAL 1.1 mg/dL (0.0-1.0); CALCIUM 9.9 mg/dL (8.4-10.2); CREATININE, serum 0.82 (0.66-1.25); POTASSIUM 3.5 mmol/L (3.4-5.0); TOTAL PROTEIN 8.1 gm/dL (6.4-8.2)
[2018-12-09 14:35] VITALS: PULSE 73
== END 2018-12-09 14:35 | disposition home or self-care (01) ==
LOC: COL.ER 11:35
PROVIDERS: Emergency Medicine
DX: G89.29 Other chronic pain (principal); R11.2 Nausea with vomiting, unspecified; R10.9 Unspecified abdominal pain; Z90.49 Acquired absence of other specified parts of digestive tract; Z85.72 Personal history of non-Hodgkin lymphomas
CPT/HCPCS: J2270; J2550; J7030

== ENCOUNTER 2019-04-13 11:55 | Emergency (ER) | payer MEDICARE ==
[~2019-04-13] VITALS: Ht 182.9 cm; Wt 79.5 kg
[2019-04-13 12:15] VITALS: BP 132/84; TEMP 98.3
[2019-04-13 13:28] LABS: BASO % 0.5 % (0.0-2.0); EOS # 0.1 (0.0-0.7); EOS % 1.6 % (0-4.0); GRAN # 2.3 (1.4-6.5); HEMATOCRIT 43.3 % (42.0-52.0); HEMOGLOBIN 14.8 g/dl (13.5-18.0); LYMPH # 1.7 (1.2-3.4); LYMPH % 39.2 % (20.0-51.0); MEAN CELL VOLUME 91 fl (80.0-100.0); MEAN CORPUSCULAR HEMOGLOBIN 31 pg (27.0-31.0); MEAN CORPUSCULAR HGB CONC 34 g/dl (33.0-37.0); MEAN PLATELET VOLUME 9.3 fl (7.4-10.4); MONO # 0.3 (0.1-0.6); MONO % 6.5 % (1.7-9.3); PLATELET COUNT 189 K/mm3 (130-400); RED BLOOD COUNT 4.74 M/mm3 (4.20-5.60); REDCELL DISTRIBUTION WIDTH-CV 13.1 % (11.5-14.5)
[2019-04-13 13:39] LABS: COLLECTION METHOD CLEAN CATCH
[2019-04-13 13:40] LABS: ALBUMIN 4.2 gm/dL (3.5-5.0); BILIRUBIN,TOTAL 0.7 mg/dL (0.0-1.0); CALCIUM 9.1 mg/dL (8.4-10.2); CREATININE, serum 0.7 (0.66-1.25); POTASSIUM 3.8 mmol/L (3.4-5.0); TOTAL PROTEIN 6.5 gm/dL (6.4-8.2)
[2019-04-13 13:47] LABS: MUCOUS Present /lpf; PH 8 (5-8); SQUAMOUS EPITHELIAL 0-2 /hpf; URINE APPEARANCE Clear; URINE BACTERIA None Seen /hpf; URINE BILIRUBIN Negative (NEGATIVE); URINE BLOOD Negative (NEGATIVE); URINE COLOR Yellow; URINE GLUCOSE Negative (NEGATIVE); URINE KETONE Negative (NEGATIVE); URINE LEUKOCYTE ESTERASE Negative (NEGATIVE); URINE NITRATE Negative (NEGATIVE); URINE PROTEIN(semi-quant) Negative (NEGATIVE); URINE RBC 0-2 /hpf; URINE UROBILINOGEN Negative (NEGATIVE)
[2019-04-13] MEDS ORDERED: REGLAN 10MG10 MG/TAB PO (14:53)
[2019-04-13] MEDS ORDERED: CLARITIN 1010 MG/TAB (14:53)
[2019-04-13 16:23] VITALS: PULSE 72
== END 2019-04-13 16:23 | disposition home or self-care (01) ==
LOC: COL.ER 11:55
PROVIDERS: Emergency Medicine
DX: R10.11 Right upper quadrant pain (principal); Z90.49 Acquired absence of other specified parts of digestive tract
CPT/HCPCS: J0780; J1170; J1885; J7030; Q9967

== ENCOUNTER 2019-04-26 04:19 | Observation (INO) | payer MEDICARE ==
[~2019-04-26] VITALS: Ht 182.9 cm; Wt 74.9 kg
[~2019-04-26 04:19] MED LIST changes: +CLARITIN 1010 MG/TAB
[2019-04-26 05:04] LABS: BASO % 0.1 % (0.0-2.0); GRAN # 12.6 (1.4-6.5); GRAN % 88.2 % (42.2-75.2); HEMATOCRIT 51.9 % (42.0-52.0); HEMOGLOBIN 18.2 g/dl (13.5-18.0); LYMPH # 1.3 (1.2-3.4); MEAN CELL VOLUME 89 fl (80.0-100.0); MEAN CORPUSCULAR HEMOGLOBIN 31 pg (27.0-31.0); MEAN CORPUSCULAR HGB CONC 35 g/dl (33.0-37.0); MEAN PLATELET VOLUME 9.6 fl (7.4-10.4); MONO # 0.4 (0.1-0.6); MONO % 2.4 % (1.7-9.3); PLATELET COUNT 325 K/mm3 (130-400); RED BLOOD COUNT 5.81 M/mm3 (4.20-5.60)
[2019-04-26 05:13] LABS: ALBUMIN 5.3 gm/dL (3.5-5.0); BILIRUBIN,TOTAL 1.2 mg/dL (0.0-1.0); CALCIUM 10.4 mg/dL (8.4-10.2); CREATININE, serum 0.83 (0.66-1.25); POTASSIUM 3.8 mmol/L (3.4-5.0); TOTAL PROTEIN 8.5 gm/dL (6.4-8.2)
[2019-04-26 06:11] LABS: COLLECTION METHOD CLEAN CATCH
[2019-04-26 06:20] LABS: MUCOUS Present /lpf; PH 5 (5-8); SQUAMOUS EPITHELIAL None Seen /hpf; URINE APPEARANCE Hazy; URINE BACTERIA None Seen /hpf; URINE BILIRUBIN Negative (NEGATIVE); URINE BLOOD 2+ (NEGATIVE); URINE COLOR Yellow; URINE GLUCOSE Negative (NEGATIVE); URINE KETONE 1+ (NEGATIVE); URINE LEUKOCYTE ESTERASE Negative (NEGATIVE); URINE NITRATE Negative (NEGATIVE); URINE PROTEIN(semi-quant) 1+ (NEGATIVE); URINE RBC 0-2 /hpf; URINE UROBILINOGEN Negative (NEGATIVE)
--- NOTE | 2019-04-26 08:10 | NUR ---
Patient to room 309 by cart from ED. Patient A&Ox4, reporting pain in abdomen and all over body. Pain medication given when requested. Oriented patient to room, bed and call light. VSS. IV CDI, fluids infusing. No further needs expressed from patient. Call light within reach
[2019-04-26] MEDS ORDERED: FOLIC ACID0.4 MG (08:22)
[2019-04-26] MEDS ORDERED: B COMPLEX #11 TAB (08:23)
[2019-04-26 08:31] VITALS: BP 118/75; PULSE 84; TEMP 98
[2019-04-26 12:28] VITALS: BP 114/68; PULSE 74; TEMP 98.1
[2019-04-26 16:00] VITALS: BP 117/75; PULSE 86; TEMP 98.5
[2019-04-26 19:20] VITALS: BP 116/62; PULSE 87; TEMP 97.7
[2019-04-26 23:40] VITALS: BP 122/65; PULSE 76; TEMP 98
[2019-04-27 03:35] VITALS: BP 125/73; PULSE 66; TEMP 97.8
--- NOTE | 2019-04-27 06:58 | NUR ---
PT MEDICATED WITH DILAUDID AND PHENERGAN THROUGH THE NIGHT. IN ROOM. PT HAD ONE EMESIS <50 mL AT THE BEGINNING OF THE SHIFT.
[2019-04-27 07:04] LABS: BASO % 0.5 % (0.0-2.0); EOS # 0.1 (0.0-0.7); EOS % 0.8 % (0-4.0); GRAN # 3.7 (1.4-6.5); GRAN % 57.9 % (42.2-75.2); HEMATOCRIT 41.9 % (42.0-52.0); LYMPH # 2.3 (1.2-3.4); LYMPH % 35.5 % (20.0-51.0); MEAN CELL VOLUME 93 fl (80.0-100.0); MEAN CORPUSCULAR HGB CONC 33 g/dl (33.0-37.0); MEAN PLATELET VOLUME 9.6 fl (7.4-10.4); MONO # 0.3 (0.1-0.6); MONO % 5.1 % (1.7-9.3); RED BLOOD COUNT 4.53 M/mm3 (4.20-5.60); REDCELL DISTRIBUTION WIDTH-CV 13.2 % (11.5-14.5)
[2019-04-27 07:06] LABS: CALCIUM 8.7 mg/dL (8.4-10.2); CREATININE, serum 0.71 (0.66-1.25); POTASSIUM 3.5 mmol/L (3.4-5.0)
[2019-04-27 07:15] LABS: MEAN CORPUSCULAR HEMOGLOBIN 31 pg (27.0-31.0); PLATELET COUNT 199 K/mm3 (130-400)
[2019-04-27 07:48] VITALS: BP 115/71; PULSE 70; TEMP 98
--- NOTE | 2019-04-27 09:05 | NUR ---
Patient resting in bed, reporting pain and nausea. A&Ox4, pain and nausea medication requested. Nurse will administer when available. VSS. IV CDI, fluids infusing. No further needs expressed from patient. Call light within reach
[2019-04-27 11:59] VITALS: BP 121/74; PULSE 78; TEMP 98.2
--- NOTE | 2019-04-27 13:15 | NUR ---
Plan: Patient plans to return home with his [place]omena as care support. Assess: Patient reports that he resides locally. Patient reports pcp as Dr. Moisés Miles and the use of [facility] for RX. PT denies having any issues with obtaining medications. Patient reports the use of a cane primarily. Patient denies any other DME. Patient denies needing any home health services. Patient denies having any care concerns. Action: No additional concerns identified. Patient educated on community resources. to transport home.
[2019-04-27 16:00] VITALS: BP 129/75; PULSE 80; TEMP 98.5
--- NOTE | 2019-04-27 18:39 | NUR ---
Patient had several episodes of dry heeves. Had complaints of pain and nausea. Pain and nausea medication given when requested. VSS. IV CDI, fluids infusing. Nursing staff encouraging PO intake. Patient verbalized an understanding. No further needs expressed from patient. Call light within reach
[2019-04-27 19:30] VITALS: BP 114/73; PULSE 90; TEMP 98.1
--- NOTE | 2019-04-27 19:35 | NUR ---
Pt resting with HOB elevated. Alert and oriented, but with flat affect. Pt reports pain 6/10 in R femur and back, which he reports are chronic pain. Pain medication given. Respirations are even and unlabored. Lungs clear to ausculation. Abdomen is soft, nontender. BS+. Pt reports nausea and decreased appetite. Refused dinner tray-reporting that will bring him some food. Pt reports pain in L AC IV site. No obvious edema or redness noted. Extremity is cool to the touch. Blood return observed but there is a concern for infiltration due to patient getting IV Phenergan and reports of tenderness. IV fluids stopped and new site will be started. No further needs noted at this time. Will continue to monitor.
--- NOTE | 2019-04-27 22:21 | NUR ---
Pt reports pain 5/10 in R femur and increasing nausea. PRN pain and nausea medications given. Will continue to monitor.
[2019-04-27 23:32] VITALS: BP 112/56; PULSE 86; TEMP 98.9
--- NOTE | 2019-04-28 01:20 | NUR ---
Pt reports continued R femur pain at 6/10 at this time. PRN pain medication given.
[2019-04-28 04:33] VITALS: BP 114/53; PULSE 62; TEMP 98.1
[2019-04-28 06:26] LABS: HEMATOCRIT 38.9 % (42.0-52.0); MEAN CELL VOLUME 93 fl (80.0-100.0); MEAN CORPUSCULAR HEMOGLOBIN 31 pg (27.0-31.0); MEAN CORPUSCULAR HGB CONC 33 g/dl (33.0-37.0); MEAN PLATELET VOLUME 9.6 fl (7.4-10.4); PLATELET COUNT 173 K/mm3 (130-400); RED BLOOD COUNT 4.18 M/mm3 (4.20-5.60); REDCELL DISTRIBUTION WIDTH-CV 13.4 % (11.5-14.5)
--- NOTE | 2019-04-28 06:28 | NUR ---
Pt is resting this AM. Pt has c/o consistent pain throughout the night requiring IV pain medications. He reported some relief with administration. He also had consistent nausea with no episodes of vomiting. Nausea required Phenergan IV q6. Pt had minimal intake.
[2019-04-28 06:42] LABS: ALBUMIN 3.4 gm/dL (3.5-5.0); BILIRUBIN,TOTAL 0.6 mg/dL (0.0-1.0); CALCIUM 8.3 mg/dL (8.4-10.2); CREATININE, serum 0.69 (0.66-1.25); POTASSIUM 3.4 mmol/L (3.4-5.0); TOTAL PROTEIN 5.4 gm/dL (6.4-8.2)
[2019-04-28 07:16] LABS: BAND 1 % (0-10); BASOPHIL 2 % (0-2); EOSINOPHIL 1 % (0-4); LYMPHOCYTE 42 % (20.0-51.0); NEUTROPHILS 52 % (42.0-75.2); PLATELET ESTIMATE NORMAL (NORMAL)
[2019-04-28 07:34] VITALS: BP 109/63; PULSE 72; TEMP 98.4
--- NOTE | 2019-04-28 08:46 | NUR ---
Pt assessment completed and charted. Pt independent w/ cane, A&O. Pt on room air, denies SOB. Denies chest pain, dizziness. Pt denies episodes of nausea or vomiting overnight, states appetite is "slowly coming back", tolerating some bland foods. RFA IV w/ NS @ 75ml/hr running w/ no complications. Pulses strong bilaterally, lung sounds clear, bowel sounds present x4, heart RRR. Pt denies stomach pain, c/o "chronic pain", rating in 5/10, received PRN dilaudid per AUG. No other concerns voiced at this time. Call light within reach.
--- NOTE | 2019-04-28 11:39 | NUR ---
Pt rounded on by hospitalist. IV dilaudid dc'd. PRN srikanth ordered for breakthrough pain. Pt currently rating pain at 3/10. Pt to discharge this afternoon. No other concerns noted.
--- NOTE | 2019-04-28 12:59 | NUR ---
First visit from the route sales person. No needs right now.
--- NOTE | 2019-04-28 14:45 | NUR ---
Pt discharge complete. RFA IV dc'd w/ catheter tip intact. No complications. Discharge instructions discussed and reviewed w/ patient who verbalized understanding. Pt escorted out via WC by this nurse. All questions answered, no other concerns voiced.
== END 2019-04-28 14:45 | disposition home or self-care (01) ==
LOC: COL.ER 04:19 → MEDICAL 05:57
PROVIDERS: Emergency Medicine; ADMIT Hospitalist
DX: R11.2 Nausea with vomiting, unspecified (principal); G89.29 Other chronic pain; E86.0 Dehydration; E87.6 Hypokalemia; G43.909 Migraine, unspecified, not intractable, without status migrainosus; C85.90 Non-Hodgkin lymphoma, unspecified, unspecified site; C79.51 Secondary malignant neoplasm of bone; Z79.899 Other long term (current) drug therapy; Z79.891 Long term (current) use of opiate analgesic
CPT/HCPCS: C9113; G0378; J1170; J1650; J2550; J2765; J7030

== ENCOUNTER 2019-06-23 09:39 | Emergency (ER) | payer MEDICARE ==
[~2019-06-23] VITALS: Ht 182.9 cm; Wt 79.5 kg
[~2019-06-23 09:39] MED LIST changes: +B COMPLEX #11 TAB; +FOLIC ACID0.4 MG
[2019-06-23] MEDS ORDERED: FOLIC ACID 11 MG/TA1 PO (09:44)
[2019-06-23 09:45] VITALS: TEMP 98.6
[2019-06-23] MEDS ORDERED: CARAFATE 1GM1 G PO (09:45)
[2019-06-23 10:20] LABS: BASO % 0.3 % (0.0-2.0); EOS % 0.1 % (0-4.0); GRAN % 81.9 % (42.2-75.2); HEMOGLOBIN 17.9 g/dl (13.5-18.0); LYMPH # 1.2 (1.2-3.4); LYMPH % 14.1 % (20.0-51.0); MEAN CELL VOLUME 89 fl (80.0-100.0); MEAN CORPUSCULAR HEMOGLOBIN 31 pg (27.0-31.0); MEAN CORPUSCULAR HGB CONC 35 g/dl (33.0-37.0); MEAN PLATELET VOLUME 9.3 fl (7.4-10.4); MONO # 0.3 (0.1-0.6); MONO % 3.3 % (1.7-9.3); PLATELET COUNT 279 K/mm3 (130-400); RED BLOOD COUNT 5.72 M/mm3 (4.20-5.60); REDCELL DISTRIBUTION WIDTH-CV 13.3 % (11.5-14.5)
[2019-06-23 10:41] LABS: ALANINE AMINOTRANSFERASE 54 U/L (21-72); ALBUMIN 5.3 gm/dL (3.5-5.0); ALKALINE PHOSPHATASE 117 U/L (50-136); ANION GAP 15 mmol/L (7-16); AST,SGOT 33 U/L (15-37); BILIRUBIN,TOTAL 1.5 mg/dL (0.0-1.0); BLOOD UREA NITROGEN 7 mg/dL (9-20); CALCIUM 10.3 mg/dL (8.4-10.2); CARBON DIOXIDE 22 mmol/L (22-30); CHLORIDE 105 mmol/L (98-107); GLUCOSE 113 mg/dL (74-106); LIPASE 44 U/L (23-300); MAGNESIUM 2.2 mg/dL (1.6-2.3); POTASSIUM 3.9 mmol/L (3.4-5.0); SODIUM 142 mmol/L (137-145); TOTAL PROTEIN 8.3 gm/dL (6.4-8.2)
[2019-06-23 10:52] LABS: C-REACTIVE PROTEIN < 0.5 mg/dL (0.0-0.9)
[2019-06-23 11:49] LABS: COLLECTION METHOD CLEAN CATCH
[2019-06-23 11:58] LABS: PH 7 (5-8); SQUAMOUS EPITHELIAL None Seen /hpf; URINE APPEARANCE Clear; URINE BACTERIA None Seen /hpf; URINE BILIRUBIN Negative (NEGATIVE); URINE BLOOD 1+ (NEGATIVE); URINE COLOR Yellow; URINE GLUCOSE Negative (NEGATIVE); URINE KETONE Negative (NEGATIVE); URINE LEUKOCYTE ESTERASE Negative (NEGATIVE); URINE NITRATE Negative (NEGATIVE); URINE PROTEIN(semi-quant) Negative (NEGATIVE); URINE RBC 0-2 /hpf; URINE UROBILINOGEN Negative (NEGATIVE)
[2019-06-23 14:10] VITALS: BP 124/74; PULSE 98
== END 2019-06-23 14:10 | disposition home or self-care (01) ==
LOC: COL.ER 09:39
PROVIDERS: Emergency Medicine
DX: R11.10 Vomiting, unspecified (principal); Z87.891 Personal history of nicotine dependence; Z90.89 Acquired absence of other organs; Z85.72 Personal history of non-Hodgkin lymphomas
CPT/HCPCS: J0780; J1170; J1200; J2550; J7030

== ENCOUNTER 2019-07-21 11:52 | Emergency (ER) | payer MEDICARE ==
[~2019-07-21] VITALS: Ht 182.9 cm; Wt 79.5 kg
[~2019-07-21 11:52] MED LIST changes: +FOLIC ACID 11 MG/TA1 PO
[2019-07-21 12:02] VITALS: TEMP 99.4
[2019-07-21 13:10] LABS: BASO % 0.1 % (0.0-2.0); EOS % 0.2 % (0-4.0); GRAN # 6.2 (1.4-6.5); GRAN % 77.1 % (42.2-75.2); HEMOGLOBIN 17.9 g/dl (13.5-18.0); LYMPH # 1.4 (1.2-3.4); LYMPH % 17.5 % (20.0-51.0); MEAN CELL VOLUME 92 fl (80.0-100.0); MEAN CORPUSCULAR HEMOGLOBIN 31 pg (27.0-31.0); MEAN CORPUSCULAR HGB CONC 34 g/dl (33.0-37.0); MEAN PLATELET VOLUME 9.6 fl (7.4-10.4); MONO # 0.4 (0.1-0.6); MONO % 4.7 % (1.7-9.3); PLATELET COUNT 253 K/mm3 (130-400); RED BLOOD COUNT 5.76 M/mm3 (4.20-5.60); REDCELL DISTRIBUTION WIDTH-CV 13.2 % (11.5-14.5)
[2019-07-21 13:11] LABS: HEMATOCRIT 52.8 % (42.0-52.0)
[2019-07-21 13:15] LABS: ALANINE AMINOTRANSFERASE 32 U/L (21-72); ALBUMIN 5.4 gm/dL (3.5-5.0); ALKALINE PHOSPHATASE 102 U/L (50-136); ANION GAP 15 mmol/L (7-16); AST,SGOT 19 U/L (15-37); BILIRUBIN,TOTAL 1.6 mg/dL (0.0-1.0); BLOOD UREA NITROGEN 13 mg/dL (9-20); C-REACTIVE PROTEIN < 0.5 mg/dL (0.0-0.9); CALCIUM 9.8 mg/dL (8.4-10.2); CARBON DIOXIDE 25 mmol/L (22-30); CHLORIDE 98 mmol/L (98-107); CREATININE, serum 0.77 (0.66-1.25); GLUCOSE 95 mg/dL (74-106); LIPASE 26 U/L (23-300); POTASSIUM 4.2 mmol/L (3.4-5.0); SODIUM 137 mmol/L (137-145); TOTAL PROTEIN 8.4 gm/dL (6.4-8.2)
[2019-07-21 16:53] VITALS: BP 125/82; PULSE 78
== END 2019-07-21 16:55 | disposition home or self-care (01) ==
LOC: COL.ER 11:52
PROVIDERS: Nurse Practitioner
DX: M54.9 Dorsalgia, unspecified (principal); R11.10 Vomiting, unspecified; C85.90 Non-Hodgkin lymphoma, unspecified, unspecified site; G89.29 Other chronic pain; F41.9 Anxiety disorder, unspecified; Z90.89 Acquired absence of other organs; Z87.891 Personal history of nicotine dependence
CPT/HCPCS: J1170; J2550; J7030

== ENCOUNTER 2019-12-31 14:27 | Emergency (ER) | payer MEDICARE ==
[~2019-12-31] VITALS: Ht 182.9 cm; Wt 81.8 kg
[2019-12-31 14:35] VITALS: TEMP 97.8
[2019-12-31] MEDS ORDERED: DILAUDID 4MG TAB4 MG PO (16:57)
[2019-12-31 17:37] LABS: CALCIUM 10.1 mg/dL (8.4-10.2); CREATININE, serum 0.75 (0.66-1.25); POTASSIUM 3.3 mmol/L (3.4-5.0)
[2019-12-31 19:25] VITALS: BP 124/86; PULSE 97
== END 2019-12-31 19:34 | disposition home or self-care (01) ==
LOC: COL.ER 14:27
PROVIDERS: Nurse Practitioner
DX: R11.2 Nausea with vomiting, unspecified (principal); G89.29 Other chronic pain; Z85.72 Personal history of non-Hodgkin lymphomas; Z88.1 Allergy status to other antibiotic agents; Z87.891 Personal history of nicotine dependence
CPT/HCPCS: J1170; J1200; J2550; J7030

== ENCOUNTER 2020-05-18 22:49 | Emergency (ER) | payer MEDICARE ==
[~2020-05-18] VITALS: Ht 182.9 cm; Wt 79.5 kg
[2020-05-18 22:51] VITALS: TEMP 98.2
[2020-05-18 23:40] LABS: BASO % 0.2 % (0.0-2.0); EOS % 0.1 % (0-4.0); GRAN # 15.8 (1.4-6.5); GRAN % 87.7 % (42.2-75.2); HEMATOCRIT 49.6 % (42.0-52.0); HEMOGLOBIN 17.7 g/dl (13.5-18.0); LYMPH # 1.3 (1.2-3.4); MEAN CELL VOLUME 89 fl (80.0-100.0); MEAN CORPUSCULAR HEMOGLOBIN 32 pg (27.0-31.0); MEAN CORPUSCULAR HGB CONC 36 g/dl (33.0-37.0); MEAN PLATELET VOLUME 9.3 fl (7.4-10.4); MONO # 0.8 (0.1-0.6); MONO % 4.7 % (1.7-9.3); PLATELET COUNT 362 K/mm3 (130-400); RED BLOOD COUNT 5.55 M/mm3 (4.20-5.60); REDCELL DISTRIBUTION WIDTH-CV 13.5 % (11.5-14.5)
[2020-05-18 23:54] LABS: ALANINE AMINOTRANSFERASE 48 U/L (4-49); ALBUMIN 5.5 gm/dL (3.5-5.0); ALKALINE PHOSPHATASE 138 U/L (50-136); ANION GAP 16 mmol/L (7-16); AST,SGOT 22 U/L (15-37); BILIRUBIN,TOTAL 1.2 mg/dL (0.0-1.0); BLOOD UREA NITROGEN 15 mg/dL (9-20); CALCIUM 10.3 mg/dL (8.4-10.2); CARBON DIOXIDE 32 mmol/L (22-30); CREATININE, serum 0.84 (0.66-1.25); GLUCOSE 156 mg/dL (74-106); LIPASE 41 U/L (23-300); POTASSIUM 3.2 mmol/L (3.4-5.0); SODIUM 133 mmol/L (137-145); TOTAL PROTEIN 8.5 gm/dL (6.4-8.2)
[2020-05-18 23:56] LABS: C-REACTIVE PROTEIN < 0.5 mg/dL (0.0-0.9); CHLORIDE 86 mmol/L (98-107)
[2020-05-19 01:35] VITALS: BP 141/70; PULSE 78
== END 2020-05-19 01:35 | disposition home or self-care (01) ==
LOC: COL.ER 22:49
PROVIDERS: Emergency Medicine
DX: K31.84 Gastroparesis (principal); G89.29 Other chronic pain; G43.909 Migraine, unspecified, not intractable, without status migrainosus; Z85.72 Personal history of non-Hodgkin lymphomas; Z86.711 Personal history of pulmonary embolism; Z88.1 Allergy status to other antibiotic agents; Z88.6 Allergy status to analgesic agent; Z88.8 Allergy status to other drugs, medicaments and biological substances; Z87.891 Personal history of nicotine dependence
CPT/HCPCS: J0780; J1170; J1200; J2550; J3010; J7030

== ENCOUNTER 2020-07-14 18:19 | Emergency (ER) | payer MEDICARE ==
[~2020-07-14] VITALS: Ht 182.9 cm; Wt 79.5 kg
[2020-07-14 18:26] VITALS: TEMP 97.8
[2020-07-14 21:04] VITALS: BP 119/78; PULSE 89
== END 2020-07-14 21:05 | disposition home or self-care (01) ==
LOC: COL.ER 18:19
DX: R11.15 Cyclical vomiting syndrome unrelated to migraine (principal); Z87.891 Personal history of nicotine dependence; Z88.1 Allergy status to other antibiotic agents; Z88.8 Allergy status to other drugs, medicaments and biological substances
CPT/HCPCS: J0780; J2550; J3010; J7030

== ENCOUNTER 2021-02-04 15:48 | Emergency (ER) | payer OTHER ==
[~2021-02-04] VITALS: Ht 182.9 cm; Wt 79.5 kg
[2021-02-04 16:10] VITALS: TEMP 99.2
[2021-02-04 18:46] VITALS: BP 132/97; PULSE 96
== END 2021-02-04 18:50 | disposition home or self-care (01) ==
LOC: COL.ER 15:48
DX: M54.5 Low back pain (principal); V89.2XXA Person injured in unspecified motor-vehicle accident, traffic, initial encounter
CPT/HCPCS: J1885; J2270; J2360

== ENCOUNTER → 2021-06-08 | Outpatient (CLI) | payer MEDICARE | LOC: MHCPAIN 14:24 | DX: M47.817 Spondylosis without myelopathy or radiculopathy, lumbosacral region (principal); M53.3 Sacrococcygeal disorders, not elsewhere classified | CPT/HCPCS: G0463 ==